=== PATIENT | male | born 2005 | race Caucasian/White ===

== ENCOUNTER 2025-01-31 15:55 | Emergency (ER) | payer MEDICAID ==
[~2025-01-31] VITALS: Ht 162.6 cm; Wt 75.0 kg
[2025-01-31 16:25] VITALS: TEMP 98.6
[2025-01-31] MEDS ORDERED: ACET-66 PO (18:12)
[2025-01-31] MEDS ORDERED: IBUP-1554 PO (18:12)
[2025-01-31] MEDS ORDERED: BACI28.410 TP (18:12)
[2025-01-31] MEDS: HYDROGEN PEROXIDE 3% 118 ML SOLUTION TP ONE (18:17)
[2025-01-31] MEDS: BACITRACIN 0.9 GM PACKET OINTMENT TP ONE (18:18)
[2025-01-31] MEDS: IBUPROFEN 600 MG TABLET PO ONE (18:18)
[2025-01-31 19:29] VITALS: BP 120/62; PULSE 62; RESP 18; O2SAT 99
== END 2025-01-31 19:32 | disposition home or self-care (01) ==
LOC: EMS 15:55
DX: S71.152A Open bite, left thigh, initial encounter (principal); W54.0XXA Bitten by dog, initial encounter; Y93.01 Activity, walking, marching and hiking; Y92.89 Other specified places as the place of occurrence of the external cause; Y99.8 Other external cause status
CPT/HCPCS: 99284; Z7502; Z7610